=== PATIENT | female | born 1960 ===

== ENCOUNTER 2017-03-24 09:35 | Emergency (ER) | payer OTHER ==
[2017-03-24 09:52] VITALS: BP 130/72
--- NOTE | 2017-03-24 10:18 | UC ---
UC General HPI - History of Current Complaint Chief Complaint: UCGeneralIllness Stated Complaint: COLLARBONE COMPLAINT Time Seen by Provider: 03/24/17 10:03 Hx Obtained From: Patient Onset/Duration: Sudden Onset, Gradual Onset Timing: Constant Onset Severity: Moderate Current Severity: Moderate - Allergy/Home Medications Allergies/Adverse Reactions: Allergies Allergy/AdvReac Type Severity Reaction Status Date / Time No Known Allergies Allergy Verified 03/24/17 09:49 PMH/Surg Hx/FS Hx/Imm Hx - Surgical History Surgical History: None - Social History Alcohol Use: Occasionally Substance Use Type: None Smoking Status (MU): Never Smoked Tobacco Review of Systems Constitutional: Negative Skin: Negative Eyes: Negative ENT: Negative Respiratory: Negative Cardiovascular: Negative Gastrointestinal: Negative Genitourinary: Negative Motor: Negative Neurovascular: Negative Musculoskeletal: Other: - right upper anterior chest wall pain Neurological: Negative Psychological: Negative All Other Systems Reviewed And Are Negative: Yes Physical Exam Triage Information Reviewed: Yes Vital Signs: Initial Vital Signs Temp 36.6 C 03/24/17 09:50 Pulse 66 03/24/17 09:50 Resp 16 03/24/17 09:50 BP 130/72 03/24/17 09:50 Pulse Ox 100 03/24/17 09:50 Eye Exam: Normal ENT Exam: Normal Dental Exam: Normal Neck exam: Normal Neck: Positive: 1 Respiratory Exam: Normal Cardiovascular Exam: Normal Abdominal Exam: Normal Musculoskeletal Exam: Other - TTP over ribs and ICS of 1,2,3 and with deep inspiration, no bony tenderness Neurological Exam: Normal Psychological Exam: Normal Skin Exam: Normal Course/Dx - Course Course Of Treatment: No fx on XR and as read by radiologist - Differential Dx - Multi-Symptom Provider Diagnoses: chestwall contusion Discharge - Discharge Plan Condition: Stable Disposition: HOME Patient Education Materials: Chest Wall Pain (ED) Referrals: Karyn Fernandez MD [Primary Care Provider] - Additional Instructions: as tolerated, NSAIDS for pain control
--- NOTE | 2017-03-24 10:46 | RAD ---
INDICATION: Right rib injury. COMPARISON: Comparison is made with a prior chest x-ray study from March 28, 2003. TECHNIQUE: 3 views of the right ribs and dual-energy PA views of the chest were obtained. FINDINGS: No fracture or significant focal osseous abnormality is seen. The heart is within normal limits in size. The lungs are clear. There is no evidence for pneumothorax or pleural effusion. IMPRESSION: NO EVIDENCE FOR FRACTURE.
== END 2017-03-24 11:36 | disposition home or self-care (01) ==
LOC: UCEAST 09:35
DX: S20.211A Contusion of right front wall of thorax, initial encounter (principal); X58.XXXA Exposure to other specified factors, initial encounter; Y92.9 Unspecified place or not applicable
CPT/HCPCS: 99211; G0463

== ENCOUNTER 2018-02-18 10:56 | Emergency (ER) | payer OTHER ==
[2018-02-18 11:04] VITALS: BP 142/87
--- NOTE | 2018-02-18 11:43 | UC ---
Upper Extremity HPI - HPI Summary HPI Summary: Pt. is a 57 y.o female who presents to the for an injury to her second finger of right hand that occurred today. Pt. states that she was working on her car when the amos came down and crushed finger. No other injuries were sustained. Pt. states her proximal finger initially looked displaced and she pushed it back into alignment. Sxs are mild in severity. Movement makes sxs worse. Rest makes sxs better. - History of Current Complaint Chief Complaint: UCUpperExtremity Stated Complaint: R HAND INJURY Time Seen by Provider: 02/18/18 11:07 Hx Obtained From: Patient Pain Intensity: 8 - Allergies/Home Medications Allergies/Adverse Reactions: Allergies Allergy/AdvReac Type Severity Reaction Status Date / Time No Known Allergies Allergy Verified 02/18/18 11:04 PMH/Surg Hx/FS Hx/Imm Hx Previously Healthy: Yes - Surgical History Surgical History: None - Family History Known Family History: Positive: Non-Contributory - Social History Occupation: Works From/At Home Lives: With Family Alcohol Use: Occasionally Substance Use Type: None Smoking Status (MU): Never Smoked Tobacco Review of Systems All Other Systems Reviewed And Are Negative: Yes Musculoskeletal: Positive: Other: - Pain to right second digit of hand Neurological: Positive: Negative Physical Exam Triage Information Reviewed: Yes Appearance: Well-Appearing - Pt. sitting on exam table in NAD. Vital Signs: Initial Vital Signs Temp 97.6 F 02/18/18 11:01 Pulse 91 02/18/18 11:01 Resp 18 02/18/18 11:01 BP 142/87 02/18/18 11:01 Pulse Ox 100 02/18/18 11:01 Vital Signs Reviewed: Yes Eyes: Positive: Conjunctiva Clear Neck: Positive: Supple Musculoskeletal: Positive: Other: - Ecchymosis and mild edema noted to right second digit of hand. Limited ROM 2 second digit secondary to pain. Majority of pain is to MCP joint. Superfical abrasion overlying MCP joint and distal 3rd digit. No pain to 3rd digit. No proximal hand pain Neurological Exam: Normal Psychological Exam: Normal Skin Exam: Normal Procedures - Splinting Right Upper Extremity Hand-Made Type: orthoglass Splint: 2nd and 3rd digits volar spliting Pre-Proc Neuro Vasc Exam: normal Post-Proc Neuro Vasc Exam: normal Upper Extremity Course/Dx - Course Course Of Treatment: Pt. presenting for isoloated finger injury. 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 Finger xray per radiology: REPORT AND IMPRESSION: #. Comminuted fracture at the junction of the proximal metaphysis and diaphysis of the. proximal phalanx with 2 cortex widths volar displacement. #. Normal articular alignment. #. Significant fusiform soft tissue swelling. No definitive subcutaneous emphysema. Xray reveiwed with Dr. Godoy. Pt. was placed in a volar orthoglass splint. Adivsed to call ortho today for a close f.u apt. Explained break may need sx. To ice and elevate. Discussed pain control. Pt. would like a dose of pain medication now but does not want a rx. Dose of lortab given in UC. To ice and elevate. Tylenol or motrin for pain as directed. Pt. understands and agrees with plan. - Differential Dx/Diagnosis Differential Diagnosis/HQI/PQRI: Contusion, Fracture (Closed), Strain, Sprain Provider Diagnosis: Finger fracture Discharge - Sign-Out/Discharge Documenting (check all that apply): Patient Departure All imaging exams completed and their final reports reviewed: Yes - Discharge Plan Condition: Good Disposition: HOME Patient Education Materials: Finger Fracture (ED) Forms: *Work Release Referrals: Krzysztof Salazar MD [Medical Doctor] - Karyn Fernandez MD [Primary Care Provider] - Additional Instructions: Call the orthopedic office today to schedule a follow up appointment Keep splint in place Ice and elevate Tylenol or Motrin for pain as directed - Billing Disposition and Condition Condition: GOOD Disposition: Home
[2018-02-18] MEDS ORDERED: HYDROcodone/ACETAMIN 5-325 MG* 1 TAB PO ONE (12:18)
== END 2018-02-18 12:25 | disposition home or self-care (01) ==
LOC: UCEAST 10:56
DX: S62.610A Displaced fracture of proximal phalanx of right index finger, initial encounter for closed fracture (principal); W23.0XXA Caught, crushed, jammed, or pinched between moving objects, initial encounter; Y92.810 Car as the place of occurrence of the external cause
CPT/HCPCS: 73140; 99211; G0463

== ENCOUNTER 2018-03-02 08:10 | Day surgery (SDC) | payer OTHER ==
[~2018-03-02 08:10] MED LIST: Buffered Lidocaine 0.9% SYRIN* 5 ML/SYR SYRINGE INTRADERM ONE; Dexamethasone IV* 4 MG/ML 1 ML (4 MG) IV SLOW PU ONE; Famotidine IV* 10 MG/ML 2 ML (20 mg) IV ONE
[2018-03-02] MEDS ORDERED: ceFAZolin 2 GM PREMIX in ORs 2 GM/50 ML BAG IVPB ONE (08:37)
[2018-03-02] MEDS ORDERED: Dexamethasone IV* 4 MG/ML 1 ML (4 MG) ONE (08:37)
[2018-03-02] MEDS ORDERED: Famotidine IV* 10 MG/ML 2 ML (20 mg) ONE (08:37)
[2018-03-02] MEDS ORDERED: Midazolam* 1 MG/ML 2 ML VIAL (2 MG) ONE (09:32)
[2018-03-02] MEDS ORDERED: Propofol* 10 MG/ML 20 ML BTL ONE (09:32)
[2018-03-02] MEDS ORDERED: fentaNYL* 50 MCG/ML 2 ML VIAL (100 MCG VIAL) ONE (09:32)
[2018-03-02] MEDS ORDERED: Lidocaine 2% PF * 5 ML VIAL ONE (09:33)
[2018-03-02] MEDS ORDERED: Bupivacaine 0.25% SDV PF* 10 ML VIAL INJ ONE (09:39)
[2018-03-02] MEDS ORDERED: Naloxone* 0.4 MG/ML 1 ML VIAL IV PRN (09:44)
[2018-03-02] MEDS ORDERED: oxyCODONE/Acetamin 5/325 MG* TAB PO PRN (09:44)
[2018-03-02] MEDS ORDERED: fentaNYL* 50 MCG/ML 2 ML VIAL (100 MCG VIAL) IV PRN (09:44)
[2018-03-02] MEDS ORDERED: Ketorolac INJ* 30 MG/ML 1 ML VIAL IV PRN (09:44)
[2018-03-02] MEDS ORDERED: HYDROcodone/ACETAMIN 5-325 MG* 1 TAB PO PRN (09:44)
[2018-03-02] MEDS ORDERED: DiMENhydriNATE IV* 50 MG/ML VIAL IV PUSH PRN (09:44)
[2018-03-02] MEDS ORDERED: EPHEDrine (Pressors)* 50 MG/ML VIAL ONE (10:07)
[2018-03-02] MEDS ORDERED: Phenylephrine IV* 40 MCG/ML 10 ML SYRINGE ONE (10:32)
[2018-03-02] MEDS ORDERED: Ondansetron INJ* 2 MG/ML VIAL ONE (11:04)
[2018-03-02 12:21] VITALS: BP 119/61
--- NOTE | 2018-03-02 16:09 | OP ---
OPERATIVE REPORT: DATE OF OPERATION: 03/02/18 DATE OF : 64 SURGEON: Oz Wolf MD PHP DEVELOPER: XENIA Huston ANESTHESIOLOGIST: Dr. Gray. ANESTHESIA: General. PRE-OP DIAGNOSIS: Right displaced index finger proximal phalanx fracture. POST-OP DIAGNOSIS: Right displaced index finger proximal phalanx fracture. OPERATIVE PROCEDURE: Right index finger proximal phalanx fracture open reduction and internal fixati on. INDICATIONS: Tamera has a very displaced fracture. We had talked about options. It did not look very length stable to me and I thought it would be difficult to get it held in place and out to length wi th pins; therefore, we did talk about open reduction and internal fixation. She understands the risk s and benefits including risk of stiffness in the finger. She wants to proceed with surgery. FINDINGS: See above and below. ESTIMATED BLOOD LOSS: 2 mL. COMPLICATIONS: None. DESCRIPTION OF PROCEDURE: Tamera was seen in the preoperative holding area. The correct side, site, a nd procedure were identified. We came back to the operating room where the arm was prepped and drape d in the usual fashion and a time-out was performed. The arm was exsanguinated with the Esmarch and the tourniquet inflated to 250 mmHg. I made a longitud inal incision over the index finger middle phalanx. Full- thickness flap was raised off the parateno n. The central slip was split longitudinally with a 15-blade. The fatty periosteal layer was split longitudinally and raised off the bone cleanly to facilitate future closure. I then exposed the frac ture. I debrided the fracture hematoma with a small curette and suction and Valentin tip. I was unab le to reduce the fracture and I placed one 1.0-mm K-wire longitudinally just to hold things out to [facility]. I got things reduced with the pointer reduction clamps and ultimately the best provisional sta bilization was with a 0.8-mm K-wire placed obliquely across the fracture site. I did attempt to place a 1.3-mm lag screw, but there was not a great plane for the lag screw and so ultimately this came ou t. I then brought my [employer] variable angle 1.5-mm handset plate in and selected the appropriate sherif te. I cut it to size. This was then bent to the appropriate contour and placed in place. I placed it on the bone. The oblong screw was infixed first. We were looking good from a proximal to distal placement of the plate and so I went ahead and placed 3 variable angle locking screws proximally. Tw o additional 1.5-mm cortical screws were placed distally. At this point, final fluoroscopy was check ed. One of the distal screws was just a millimeter or 2 long, so I took that 8-mm screw out and swit ched it for a 7-mm screw. After that, everything looked very nice. We went ahead and irrigated out the wound. The periosteal fatty layer was closed with 5-0 Prolene suture with the knots buried. The tendon split was closed with 4-0 Prolene suture again with the knots buried. The skin was closed wi th 4-0 nylon suture, little plaster hand based splint was applied securing the index finger and the m iddle finger. Tourniquet was deflated and the finger pinked up immediately. She was taken to the re covery room in stable condition. [id number]/[facility] #: [id number]
== END 2018-03-02 12:46 | disposition home or self-care (01) ==
LOC: OR 08:10
PROVIDERS: ATTEND Orthopaedic Surgery Hand Surgery
DX: S62.610A Displaced fracture of proximal phalanx of right index finger, initial encounter for closed fracture (principal); I10 Essential (primary) hypertension; F32.9 Major depressive disorder, single episode, unspecified; M79.7 Fibromyalgia; X58.XXXA Exposure to other specified factors, initial encounter
CPT/HCPCS: 76000; C1713; C1776; J0690; J1100; J2250; J2405; J2704; J3010; J3490